=== PATIENT | male | born 1995 ===

== ENCOUNTER 2018-02-27 23:11 | Emergency (ER) | payer SELFPAY ==
[2018-02-27 23:18] VITALS: BP 144/94; PULSE 100; RESP 20; TEMP 98.9; O2SAT 98
[2018-02-27] MEDS ORDERED: Povidone Iodine Topical 10% Sol ONE (23:39)
[2018-02-27] MEDS ORDERED: Tdap Vaccine 0.5 ml Vial (10-64 yrs) IM ONE ×2 (23:44→23:49)
[2018-02-27] MEDS ORDERED: Oxycodone/Acetaminophen 5/325 mg Tab PO ONE (23:44)
--- NOTE | 2018-02-27 23:46 | ED PDOC ---
HPI: Wound Care - HPI Time Seen by Provider: 02/27/18 23:27 Chief Complaint (Nursing): Finger,Hand,&Wrist Chief Complaint (Provider): lacerations to fingers of left hand History Per: Patient History Of Present Illness: 23 y/o male presents for evaluation of lacerations to fingers of left hand, sustained 8 hours prior to arrival. 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 States he went home and cleaned hand and applied bandages but it wouldn't stop bleeding so he decided to come to the ED. Denies numbness/weakness left upper extremity, limitation of movement. Last tetanus unknown Past Medical History Reviewed: Historical Data, Nursing Documentation, Vital Signs Vital Signs: Last Vital Signs Temp 98.9 F 02/27/18 23:17 Pulse 100 H 02/27/18 23:17 Resp 20 02/27/18 23:17 BP 144/94 H 02/27/18 23:17 Pulse Ox 98 02/27/18 23:17 - Medical History PMH: No Chronic Diseases - Surgical History Surgical History: No Surg Hx - Family History Family History: States: No Known Family Hx - Living Arrangements Living Arrangements: With Family - Home Medications Home Medications: Ambulatory Orders Medication Instructions Recorded Cephalexin [Keflex] 500 mg PO Q6 #27 capsule 02/28/18 Naproxen [Naprosyn] 500 mg PO Q12 PRN #20 tablet 02/28/18 - Allergies Allergies/Adverse Reactions: Allergies Allergy/AdvReac Type Severity Reaction Status Date / Time No Known Allergies Allergy Verified 02/27/18 23:17 Review of Systems ROS Statement: Except As Marked, All Systems Reviewed And Found Negative Musculoskeletal: Positive for: Hand Pain (right hand) Physical Exam - Reviewed Nursing Documentation Reviewed: Yes Vital Signs Reviewed: Yes - Physical Exam Appears: Positive for: Well, Non-toxic, No Acute Distress Pulses-Radial (L): 2+ Pulses-Radial (R): 2+ Extremity: Positive for: Normal ROM, Other (2cm linear laceration palmar left hand 3rd digit. Two nearly connecting 1.5cm linear lacerations distal to first laceration on palmar left hand 3rd digit. Jagged, irregular skin flap laceration most distal aspect palmar left hand 3rd digit. Two superficial linear laceration distal palmar left hand 4th digit. Two superficial linear lacerations distal palmar left hand 2nd digit. Distal NV/motor intact all digits LUE. ) Neurologic/Psych: Positive for: Alert, Oriented (x3). Negative for: Motor/Sensory Deficits - ECG O2 Sat by Pulse Oximetry: 98 - Progress ED Course And Treament: Tetanus, Percocet, lac repair Procedure: Wound Repair - Time Performed Time Performed: 00:45 - Time Out Time Out: Side verified, Site verified, Patient ID confirmed, Sterile procedures obs. - Consent Obtained Consent obtained: Verbal - Performed by Performed by: Mid-level Provider - Indications Indication(s):: Laceration - Location Location:: Left Finger:: Middle Shape:: Linear, Other (iiregular) Depth:: Epidermis - Anesthetic Technique Anesthetic Technique: Topical (digital block) Local/Regional Anesthetic:: Lidocaine 1% - Debris Debris:: None - Irrigated Irrigated with ml of normal saline: 250mL - Complexity Complexity:: Simple (one layer) - Wound repair method Sutures:: # ((all left hand 3rd digit) Most proximal: 4, mid: 3, distal: 4), Size (4'0, 5'0), Type (prolene), Technique (interrupted) Lee:: Tissue glue (Left hand 2nd and 4th digit lacerations), Steri-strips (Left hand 2nd and 4th digit lacerations) - Muscle repiar layer closed with Muscle repair layer closed with:: Wound well approximated, Abx ointment applied, Dressing applied (splint applied to 3rd digit. Bulky dressings applied to 2nd and 4th digits), Tetanus ordered - Patient tolerated procedure Patient Tolerated Procedure:: Well Medical Decision Making Medical Decision Making: Patient educated on wound care, advised suture removal 7-10 days. Patient was instructed to follow up in 48 hours for wound check Rx Keflex (dose given in ED), Naproxen provided Advised to apply neosporin daily Return precautions given Patient demonstrates full understanding of discharge instructions Patient requires no further intervention in the ED and is stable for discharge at this time Disposition - Clinical Impression Clinical Impression: Finger laceration - Patient ED Disposition Is Patient to be Admitted: No Counseled Patient/Family Regarding: Diagnosis, Need For Followup, Rx Given - Disposition Referrals: [facility] [Outside] Disposition: Routine/Home Disposition Time: 01:31 Condition: IMPROVED Additional Instructions: Return to ED in 48 hours for wound check Apply neosporin daily Suture removal in 7-8 days Prescriptions: Cephalexin [Keflex] 500 mg PO Q6 #27 capsule Naproxen [Naprosyn] 500 mg PO Q12 PRN #20 tablet PRN Reason: Pain, Moderate (4-7) Instructions: Laceration Repair Forms: [facility] ED School/Work Excuse Print Language: JAPANESE
[2018-02-27] MEDS ORDERED: Oxycodone/Acetaminophen 5/325 mg Tab ONE (23:48)
== END 2018-02-28 02:20 | disposition home or self-care (01) ==
LOC: H.ER 23:11
DX: S61.211A Laceration without foreign body of left index finger without damage to nail, initial encounter (principal); S61.213A Laceration without foreign body of left middle finger without damage to nail, initial encounter; S61.215A Laceration without foreign body of left ring finger without damage to nail, initial encounter; W31.89XA Contact with other specified machinery, initial encounter; Y93.9 Activity, unspecified; Y99.0 Civilian activity done for income or pay

== ENCOUNTER 2018-03-02 16:08 | Emergency (ER) | payer OTHER ==
[2018-03-02 16:32] VITALS: BP 134/84; PULSE 78; RESP 16; TEMP 98.4; O2SAT 100
--- NOTE | 2018-03-02 17:40 | ED PDOC ---
HPI: Wound Care - HPI Chief Complaint (Nursing): Wound Check Additional Complaint(s): Pt seen and examined at bedside with attending. 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 Denies fevers, chills, erythema, drainage, and pain is managed with prescribe medication. Past Medical History Vital Signs: Last Vital Signs Temp 36.9 C 03/02/18 16:27 Pulse 78 03/02/18 16:27 Resp 16 03/02/18 16:27 BP 134/84 03/02/18 16:27 Pulse Ox 100 03/02/18 16:27 - Family History Family History: States: Unknown Family Hx - Home Medications Home Medications: Ambulatory Orders Medication Instructions Recorded Cephalexin [Keflex] 500 mg PO Q6 #27 capsule 02/28/18 Naproxen [Naprosyn] 500 mg PO Q12 PRN #20 tablet 02/28/18 - Allergies Allergies/Adverse Reactions: Allergies Allergy/AdvReac Type Severity Reaction Status Date / Time No Known Allergies Allergy Verified 03/02/18 16:27 Review of Systems ROS Statement: Except As Marked, All Systems Reviewed And Found Negative Musculoskeletal: Positive for: Hand Pain (LEFT 2-4 fingers pain) Physical Exam - Reviewed Vital Signs Reviewed: Yes - Physical Exam Appears: Positive for: Well, Non-toxic, No Acute Distress Head Exam: Positive for: ATRAUMATIC Skin: Positive for: Normal Color, Warm, Dry Neck: Positive for: Supple Cardiovascular/Chest: Positive for: Regular Rate, Rhythm Respiratory: Positive for: Normal Breath Sounds. Negative for: Rales, Wheezing Gastrointestinal/Abdominal: Positive for: Normal Exam, Bowel Sounds, Soft Extremity: Negative for: Normal ROM (LEFT 2nd phalanx non-erythematous, no drainage, steri-strips in place, cap refill <3s; 4th LEFT phalanx non- erythematous, no drainage, steri-strips in place, cap refill <3s; 3rd LEFT phalanx, non-erythematous, no drainage, sutures in place, cap refill <3s) - ECG O2 Sat by Pulse Oximetry: 100 Medical Decision Making Medical Decision Makinnd LEFT phalanx, removed dressing, will not replace 3rd LEFT phalanx, removed dressing, replaced with bacitracin/splint and kurlex 4th LEFT phalanx, removed dressing, will not replace - d/w attening Disposition - Clinical Impression Clinical Impression: Encounter for re-check of laceration wound - Patient ED Disposition Is Patient to be Admitted: No - Disposition Referrals: [facility] [Outside] Zahida Gotti MD [Staff Provider] - Disposition: Routine/Home Disposition Time: 17:47 Condition: GOOD Additional Instructions: - Wash 2nd/4th phalanx with soap and water and leave steri-strips in place - ROM for 2nd/4th phalanx - 3rd phalanx leave splint/drsg in place - Instructed to return to ER for wound check Tuesday03/06/2018 - ER precautions for increased pain, redness, swelling, fevers, or chills Instructions: Wound Care (DC) Forms: [employer] (Irish)
== END 2018-03-02 18:12 | disposition home or self-care (01) ==
LOC: H.ER 16:08
DX: Z48.00 Encounter for change or removal of nonsurgical wound dressing (principal)

== ENCOUNTER 2018-03-06 15:20 | Emergency (ER) | payer OTHER ==
[2018-03-06 15:52] VITALS: BP 130/72; PULSE 82; RESP 16; TEMP 98.4; O2SAT 100
--- NOTE | 2018-03-06 16:50 | ED PDOC ---
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 At that time his 2nd and 4th digit dressings were removed but 3rd digit was examined and redressed. Pt returns today per our recommendation for wound check and possible suture removal. Denies fevers, chills, erythema, drainage. Continues to have significant pain at 3rd Left digit. Past Medical History Vital Signs: Last Vital Signs Temp 98.4 F 03/06/18 15:51 Pulse 82 03/06/18 15:51 Resp 16 03/06/18 15:51 BP 130/72 03/06/18 15:51 Pulse Ox 100 03/06/18 15:51 - Family History Family History: States: Unknown Family Hx - Home Medications Home Medications: Ambulatory Orders Medication Instructions Recorded Cephalexin [Keflex] 500 mg PO Q6 #27 capsule 02/28/18 Naproxen [Naprosyn] 500 mg PO Q12 PRN #20 tablet 02/28/18 - Allergies Allergies/Adverse Reactions: Allergies Allergy/AdvReac Type Severity Reaction Status Date / Time No Known Allergies Allergy Verified 03/02/18 16:27 Physical Exam - Reviewed Nursing Documentation Reviewed: Yes (LEFT 2nd phalanx w/ normal ROM, non- erythematous, no drainage, steri-strips in place, cap refill <3s; 4th LEFT phalanx non-erythematous, no drainage, steri-strips in place, cap refill <3s; 3rd LEFT phalanx, non-erythematous, + generalized swelling, no drainage, sutures in place w/ no scar tissue noted, cap refill <3s), 2 distinct areas of whitish discoloration aound sutures on distal phalanx) Vital Signs Reviewed: Yes - Physical Exam Appears: Positive for: Well Extremity: Positive for: Other (Negative for: Normal ROM (LEFT 2nd phalanx non- erythematous, no drainage, steri-strips in place, cap refill <3s; 4th LEFT phalanx non-erythematous, no drainage, steri-strips in place, cap refill <3s; 3rd LEFT phalanx, non-erythematous, no drainage, sutures in place, cap refill <3s), areas of white discoloration around sutures on 3rd Left digit, sutured areas w/o granular tissue formation.) Neurologic/Psych: Positive for: Alert, Oriented - ECG O2 Sat by Pulse Oximetry: 100 Medical Decision Making Medical Decision Making: dressing removed from 3rd Left digit, wound cleaned with normal saline and redressed with bacitracin, gauze and hand splint. Emphasized need to f/u with hand surgeon for further care (referral given). Sutures should attempt to be removed within 3 - 5 days. Disposition - Clinical Impression Clinical Impression: Finger laceration - Patient ED Disposition Is Patient to be Admitted: No - Disposition Referrals: Angus Sanford MD [Medical Doctor] - Disposition: Routine/Home Disposition Time: 17:05 Condition: STABLE Additional Instructions: Please f/u with hand surgeon within the next few days as your hand needs more specialized evaluation. Keep dressing on 3rd digit on Left hand with bacitracin. Can remove dressing daily and wash with soap and water. Keep dry as much as possible. Sutures should be removed within the next 3 - 5 days. Instructions: Laceration Repair With Stitches (DC) Forms: [employer] ([place]), [facility] ED School/Work Excuse Print Language: BELARUSIAN
== END 2018-03-06 17:05 | disposition home or self-care (01) ==
LOC: H.ER 15:20
DX: Z48.01 Encounter for change or removal of surgical wound dressing (principal)

== ENCOUNTER 2018-03-10 13:38 | Emergency (ER) | payer OTHER ==
[2018-03-10 13:45] VITALS: BP 133/81; PULSE 87; RESP 16; TEMP 97.7; O2SAT 99
--- NOTE | 2018-03-10 13:55 | ED PDOC ---
HPI: Wound Care - HPI Time Seen by Provider: 03/10/18 13:48 Chief Complaint (Nursing): Suture/Staple Removal Chief Complaint (Provider): Suture Removal History Per: Patient Exam Limitations: no limitations Additional Complaint(s): 23 year old right hand dominant male with no past medical history presents to the ED for a wound check and suture removal of laceration to left hand repaired at this ED on 02/27/2018. Patient denies pain to the area. Tetanus vaccination is up to date. Denies any fever or chills. PMD: None provided Past Medical History Reviewed: Historical Data, Nursing Documentation, Vital Signs Vital Signs: Last Vital Signs Temp 97.7 F 03/10/18 13:43 Pulse 87 03/10/18 13:43 Resp 16 03/10/18 13:43 BP 133/81 03/10/18 13:43 Pulse Ox 99 03/10/18 13:43 - Medical History PMH: No Chronic Diseases - Surgical History Surgical History: No Surg Hx - Family History Family History: States: No Known Family Hx - Living Arrangements Living Arrangements: With Family - Social History Current smoker - smoking cessation education provided: No Alcohol: None Drugs: Denies - Immunization History Hx Tetanus Toxoid Vaccination: Yes (up to date) - Home Medications Home Medications: Ambulatory Orders Medication Instructions Recorded Cephalexin [Keflex] 500 mg PO Q6 #27 capsule 02/28/18 Naproxen [Naprosyn] 500 mg PO Q12 PRN #20 tablet 02/28/18 - Allergies Allergies/Adverse Reactions: Allergies Allergy/AdvReac Type Severity Reaction Status Date / Time No Known Allergies Allergy Verified 03/10/18 13:42 Review of Systems ROS Statement: Except As Marked, All Systems Reviewed And Found Negative Constitutional: Negative for: Fever Skin: Positive for: Other (suture removal of laceration to left hand) Physical Exam - Reviewed Nursing Documentation Reviewed: Yes Vital Signs Reviewed: Yes - Physical Exam Appears: Positive for: Well, Non-toxic, No Acute Distress Head Exam: Positive for: ATRAUMATIC, NORMOCEPHALIC Skin: Positive for: Normal Color. Negative for: Rash Eye Exam: Positive for: Normal appearance Extremity: Positive for: Other (well healed sutured laceration to finger pad of left 3rd digit. 4th left digit: steri strips in place, no infections noted, N/V intact) Neurologic/Psych: Positive for: Alert, Oriented (3x) - ECG O2 Sat by Pulse Oximetry: 99 (RA) Pulse Ox Interpretation: Normal Medical Decision Making Medical Decision Makin:48 Initial impression: 23 year old male in the ED for a wound check Initial plan: Sutures were removed without difficulty from left 3rd digit Patient was given wound care instructions. Scribe Attestation: Documented by Conchita Mak, acting as a scribe for Esther Graham PA-C. Provider Scribe Attestation: All medical record entries made by the Scribe were at my direction and personally dictated by me. I have reviewed the chart and agree that the record accurately reflects my personal performance of the history, physical exam, medical decision making, and the department course for this patient. I have also personally directed, reviewed, and agree with the discharge instructions and disposition. Disposition - Clinical Impression Clinical Impression: Removal of suture - Patient ED Disposition Is Patient to be Admitted: No Counseled Patient/Family Regarding: Need For Followup - Disposition Referrals: [facility] [Outside] Disposition: Routine/Home Disposition Time: 14:04 Condition: STABLE Additional Instructions: Keep wound clean and dry. Apply bacitracin once per day only. Follow-up as needed with primary doctor or clinic. Instructions: Stitches Removal Forms: [email or web address] ([email or web address])
== END 2018-03-10 14:26 | disposition home or self-care (01) ==
LOC: H.ER 13:38
DX: Z48.02 Encounter for removal of sutures (principal)